=== PATIENT | male | born 1940 | race Native Hawaiian/Other Pacific Islander ===

== ENCOUNTER 2019-01-13 16:53 | Emergency (ER) | payer OTHER, BC ==
[~2019-01-13] VITALS: Ht 182.9 cm; Wt 105.7 kg
[~2019-01-13 16:53] MED LIST: AMLODIPINE BESYLATE PO; ASPIRIN 81 LOW81 MG PO; ATOR10TA3 PO; LORA0.5T17 PO; MEMANTINE HCL10 MG PO; METO-837 PO; SERTRALINE HYDR50 MG PO; TAMSULOSIN HYD0.4 MG PO; XARELTO20 MG PO; ZIPRASIDONE HCL20 MG PO
[2019-01-13 18:50] VITALS: BP 168/72; TEMP 97.9
[2019-01-20] MEDS ORDERED: OLAN2.5T2 PO (13:10)
[2019-01-20] MEDS ORDERED: ESCI10TA PO (13:11)
[2019-01-20] MEDS ORDERED: DONE5TAB PO (13:11)
== END 2019-01-13 18:50 | disposition still patient (30) ==
LOC: ED 16:53
PROC: 0HQ0XZZ Repair Scalp Skin, External Approach (ICD-10-PCS; principal; 2019-01-13)
DX: S01.01XA Laceration without foreign body of scalp, initial encounter (principal); W01.0XXA Fall on same level from slipping, tripping and stumbling without subsequent striking against object, initial encounter; Y92.238 Other place in hospital as the place of occurrence of the external cause
CPT/HCPCS: 90471; 99283